=== PATIENT | female | born 1990 | race Caucasian/White ===

== ENCOUNTER → 2017-01-23 | Outpatient (CLI) | payer OTHER ==
[~2017-01-23] MED LIST: ALPR0.25 PO; ETON68IM3 SQ; IOHEXOL 240 MG/ML 50ML VIAL. PO ONE; IOHEXOL 300 MG/ML 100ML VIAL. IV ONE
--- NOTE | 2017-01-23 13:53 | KCIC ---
CT abdomen and pelvis with contrast Indication: . Right lower quadrant pain. Groin pain. Pain after gymnastics class.. Technique: Intravenous contrast is given. Oral contrast was administered as well. Comparison: None are available. Exposure: One or more of the following individualized dose reduction techniques were utilized for this examination: 1. Automated exposure control 2. Adjustment of the mA and/or kV according to patient size 3. Use of iterative reconstruction technique. FINDINGS: Lower thorax: Lung bases are clear. Pneumoperitoneum:No gross pneumoperitoneum. Liver: Unremarkable Spleen: Unremarkable Pancreas: Unremarkable Adrenals:No evidence of mass. Kidneys:Unremarkable Gallbladder: No calcified stone Aorta: Abdominal aorta is nonaneurysmal Lymph nodes: No significant enlargement GI tract: No bowel obstruction. No paracolonic inflammation. Appendix:Visualized, appears within normal limits. The appendix fills with oral contrast. Ascites: No gross ascites. Urinary bladder: Not opacified, but no apparent abnormality. Small hypodense lesion in the right adnexa, measures 28 mm diameter, and measures water density, compatible with a cyst. Bones: No destructive process. IMPRESSION: 1. Small right ovarian cyst. 2. No acute findings are identified. Electronically signed by: Jefferson iHdalgo MD (01/23/2017 1:50 PM) [id number]
== END | disposition home or self-care (01) ==
LOC: KCIC CT 12:10
PROVIDERS: ATTEND Nurse Practitioner Family
DX: N83.201 Unspecified ovarian cyst, right side (principal); J45.909 Unspecified asthma, uncomplicated; Z87.891 Personal history of nicotine dependence
CPT/HCPCS: 74177; Q9966; Q9967